=== PATIENT | female | born 1985 | race Caucasian/White ===

== ENCOUNTER → 2024-05-24 | Outpatient (CLI) | payer OTHER ==
[2024-05-24 11:53] VITALS: BP 168/116; PULSE 76; RESP 16; TEMP 98.1
--- NOTE | 2024-05-24 12:28 | P.SLEEP ---
History of Present Illness DATE: 05/24/2024 CONSULTATION/NEW PATIENT EVALUATION HISTORY OF PRESENT ILLNESS/SLEEP-WAKE EVALUATION: 38-year-old lady had been ev aluated in the sleep center for possible obstructive sleep apnea hypopnea syndrome. SLEEP SCHEDULE: Usually sleep schedule from midnight until 6 AM on weekdays and from 12 AM until 79 AM on weekend. FALLING ASLEEP: Sometimes patient has difficulties with falling asleep, although no TV in bedroom. DURING SLEEP: Patient usually sleeps on the side and back position with snoring and witnessed episodes of stop breathing during the sleep. Positive history of heartburn during the sleep. Positive history of restless leg symptoms during the night. Patient wakes up from sleep up to 4 times with up to 1 episode of nocturia. No history of hypnogogical hallucinations, sleep paralysis, or cataplexy. DURING THE DAY/WAKE STATE: In the morning patient wake up tired, has difficulties to pay attention, irritability, anxiety. [place] sleepiness scale is 9. Patient usually does not take naps. PAST MEDICAL HISTORY: Nasal septum deviation. PAST SURGICAL HISTORY: Tonsillectomy, cholecystectomy. MEDICATIONS: Please see below. SOCIAL HISTORY: Please see below. FAMILY HISTORY: Please see below. REVIEW OF SYSTEMS: Snoring, multiple awakenings from sleep, sleepiness during the day. No fevers. No double vision. No recent chest pain. No shortness of breath. No abdominal pain. No bleeding episodes. No blood in urine. No seizure episodes. PHYSICAL EXAMINATION: GENERAL: A pleasant patient without any distress. VITAL SIGNS: Please see below, weight 332 pounds, BMI 51.9. HEENT: PERRLA, EOMI. Evaluation of oropharynx showed tongue protrudes midline, low position of soft palate Mallampati 3, retrognathia 2-3 mm. Restriction of nasal breathing mostly on the left side. NECK: Supple. No JVD. Thyroid is not palpable. 18 inches in circumference. LUNGS: Clear to percussion and to auscultation. Good air exchange. No wheezing or rhonchi. HEART: S1, S2 regular. No murmurs, gallops or rubs. ABDOMEN: Soft and nontender. Bowel sounds are present. No organomegaly appreciated. Obese EXTREMITIES: No clubbing or cyanosis. ARCHIVES TECHNICIAN: Awake, alert, and oriented x3. Cranial nerves 2 to 7 intact. There is no fasciculation or atrophy noted. No focal deficits observed. ASSESSMENT: 1. Snoring, multiple awakenings from sleep, witnessed episodes of stop breathing during the sleep, low position of soft palate Mallampati 3, wide neck 18 inches in circumference, episodes of sleepiness with [place] Sleepiness Scale borderline at 9. Obstructive sleep apnea hypopnea syndrome. 2. Hypertension in the office today with blood pressure 168/116. 3. Obesity, BMI 51.9. 4. Restriction of nasal breathing more on the left side. Possibly nasal septum deviation 5 status post tonsillectomy. 6 . Status post cholecystectomy. PLAN: 1. Polysomnography for evaluation of patient's breathing during sleep. 2. Following plan after reading sleep study. 3. Preferable position during sleep on the side. 4. No driving if patient feels any sleepiness. Patient is aware of civil and criminal liability for unsafe driving. 5. Sleep hygiene with regular sleep time for at least 7.5-8 hours. 6. Watching and losing weight. 7. Monitoring blood pressure, low-sodium diet. Thank you very much for referring this patient for consultation. Sincerely, Ag Lemon MD, PhD, FAASM. Diplomat of [place] [employer], Sleep Medicine Board by [place] [employer] [facility] [place] cc: Conchita Gomez MD Past Medical History Past Medical History: Asthma, Hypertension History of Any Multi-Drug Resistant Organisms: None Reported Past Surgical History: Cholecystectomy, Tonsillectomy Past Anesthesia/Blood Transfusion Reactions: No Reported Reaction Past Psychological History: Anxiety, Depression Smoking Status: Former smoker Past Alcohol Use History: Occasional Past Drug Use History: Marijuana Additional Drug Use History / Comment(s): EDIBLES - Past Family History Mother Family Medical History: Cancer, Diabetes Mellitus, Osteoarthritis (OA), Sleep Apnea/CPAP/BIPAP, Thyroid Disorder Father Family Medical History: Hyperlipidemia, Liver Disease, Osteoarthritis (OA) Medications and Allergies Home Medications Medication Instructions Recorded Confirmed Type Levonorgest/Eth.estradiol/Iron See Rx Instructions .ROUTE .COMPLEX 05/24/24 05/24/24 History [Joyeaux-28 Tablet] Phentermine HCl [Adipex-P] 37.5 mg PO DAILY 05/24/24 05/24/24 History Spironolactone 25 mg PO DAILY 05/24/24 05/24/24 History Physical Exam Vitals: Vital Signs Temp Pulse Resp BP Pulse Ox 05/24/24 11:51 98.1 F 76 16 168/116 97 Intake and Output 05/23/24 05/24/24 05/24/24 22:59 06:59 14:59 Other: Weight 150.593 kg Sleep Note - Sleep Data ESS Total: 9 - Sleep Note Sleep Note: Temperature: 98.1 F Pulse Rate: 76 Respiratory Rate: 16 Blood Pressure: 168/116 SpO2: 97 Height: 5 ft 7 in Weight: 150.593 kg BMI: Neck Circumference: 18
== END ==
LOC: 3 N SLEEP 11:25
PROVIDERS: ATTEND Internal Medicine
DX: G47.33 Obstructive sleep apnea (adult) (pediatric) (principal); I10 Essential (primary) hypertension; E66.01 Morbid (severe) obesity due to excess calories; K91.5 Postcholecystectomy syndrome; R06.89 Other abnormalities of breathing; Z68.43 Body mass index [BMI] 50.0-59.9, adult; Z90.89 Acquired absence of other organs
CPT/HCPCS: 99211